=== PATIENT | female | born 2005 | race Caucasian/White ===

== ENCOUNTER 2023-07-18 16:57 | Emergency (ER) | payer OTHER, SELFPAY ==
[2023-07-18 16:58] VITALS: BMI 27.7
[2023-07-18 17:00] VITALS: BP 139/63
[2023-07-18 17:56] LABS: HCG, Urine Qualitative Screen Negative
--- NOTE | 2023-07-18 18:41 | ED.GENMED ---
History of Present Illness
General
Chief Complaint: Fainting/Passed Out
Source: patient
Exam Limitations: none
Time Seen by Provider: 07/18/23 18:39
Nursing documentation reviewed up to this point in time: agreed with
Travel History
Have you had any contact with someone who has COVID-19?: No
Do you have any symptoms of coronavirus? Fever > 100 degrees, chills, cough, shortness of breath, sore throat, loss of taste or smell, muscle aches, or headache?: No
History of Present Illness
History of Present Illness:
17-year-old female with no significant past medical history states she was in a crowded hot restaurant and had not eaten, she had not smoked pot for 2 weeks and after eating a marijuana gummy she passed out.
She states 'I know exactly what happened, I feel completely fine and I want to go home.' Her friend at bedside was with her and he states she faltered and he caught her she did not fall
Past History
Past History
ED Past Medical History: None
ED Past Surgical History: None
Social History
Tobacco: Non-smoker
Alcohol: None
Drug: Marijuana
Personal: Single
Living: with family
Employment: Employed
Review of Systems
Review of Systems
Allergies reviewed?: Yes
All Other Systems: ROS reviewed and negative except as documented in HPI and ROS
Constitutional: Denies fever, fatigue or chills
Respiratory: Denies trouble breathing
Cardiac: Reports syncope; Denies chest pain, diaphoresis or palpitations
ABD/GI: Denies abdominal pain, nausea, vomiting or diarrhea
: Denies dysuria, frequency, difficulty voiding or urgency
Musculoskeletal: Reports no symptoms
Neurological: Reports no symptoms
Phy Exam
Physical Exam
Physical Exam:
GENERAL: No acute distress. A&Ox3.
CONSTITUTIONAL: Afebrile.
EYES: PERRL, conjunctivae normal
ENMT: moist mucus membranes, Pharynx nl
RESPIRATORY: Regular respirations, nonlabored, lungs clear.
CARDIOVASCULAR: Regular rate and rhythm, no murmurs, no rubs.
GI: Soft, nontender, normal BS
MUSCULOSKELETAL: Moves with ease. Well perfused.
SKIN: Warm, dry, pink
PSYCH: Normal mood and affect. Well kept, interactive and appropriate
NEUROLOGIC: Awake, alert and oriented. No focal neurological deficits
Course
Orders/Labs/Results
Orders:
Orders
07/18/23 17:06
EKG [Electrocardiogram (*1)] Urgent
Reason for Study: Tachycardia
EKG- Treatment ONCE
07/18/23 17:17
Test Result ONCE
07/18/23 17:29
, Urine Qualitative Screen [HCG, Urine Qualitative Screen] Urgent
Date Specimen was Collected: 07/18/23
Time Specimen was Collected: 17:17
Vital Signs
Initial and Last Documented VS:
Initial Vital Signs
Temp Pulse Resp BP Pulse Ox
98.1 F 122 18 139/63 100
07/18/23 17:00 07/18/23 17:00 07/18/23 17:00 07/18/23 17:00 07/18/23 17:00
Last Documented Vital Signs
Temp Pulse Resp BP Pulse Ox
98.1 F 89 18 139/63 100
07/18/23 17:00 07/18/23 18:59 07/18/23 17:00 07/18/23 17:00 07/18/23 17:00
MDM/Problems Addressed
Differential Diagnosis Includes:
Vasovagal episode
MDM/Problems Addressed:
17-year-old female with no significant past medical history no recent illness, states she was in a crowded hot restaurant and had not eaten, she had not smoked pot for 2 weeks and after eating a marijuana gummy she passed out. Her friend at bedside
was with her and he states she faltered and he caught her she did not fall
She states 'I know exactly what happened, I feel completely fine and I want to go home.'
Physical exam is unremarkable
She is eating lunch and drinking.
Pt states her heart rate is up as she is nervous, she has had medical exams in the past where concern for HR addressed and always from 'nerves.'
History and exam is consistent with a vasovagal episode versus a side effect of the marijuana gummy
Stable for discharge.
HR 89 at discharge
*Critical Care Note
Total Time (30-74mins, 75-104mins- exclusive of procedures): Not Applicable
ED Attending Note
-
Portions of this chart may have been created with voice recognition software.� Occasional wrong word or��sound alike� substitutions may have occurred due to the inherent limitations of voice recognition software.
Discharge Plan
Departure
Patient Disposition: Home (Routine Discharge)
Date of Disposition: 07/18/23
Time of Disposition: 18:54
Patient with high blood pressure during this ER visit?: No
Condition: Good
Discharge Problem:
Episode of syncope
Instructions: Syncope (Fainting) (DC)
Referrals:
NONE,* [Family Provider] -
Activity Restrictions/Additional Instructions:
As we discussed,I see nothing worrisome in your workup here today, drink plenty of fluids as you may be dehydrated causing your rapid heart rate and passing out.
Interventions
Interventions:
*Risk Screen - Suicide Last Done: 07/18/23 17:00
*General Assessment Last Done: 07/18/23 17:00
*Neglect/Abuse Screening Last Done: 07/18/23 17:00
ED- Fall Risk Assessment Last Done: 07/18/23 17:15
*Nursing Disposition Last Done: 07/18/23 19:11
ED- Cardiac Assessment Last Done: 07/18/23 17:15
ED- Neurological Assessment Last Done: 07/18/23 17:15
Discharge Date and Time
Discharge Date/Time: 07/18/23 19:11
== END 2023-07-18 19:11 | disposition home or self-care (01) ==
LOC: EMR 16:57
PROVIDERS: EMERGENCY PHYSICIAN Emergency Medicine
DX: R55 Syncope and collapse (principal)
CPT/HCPCS: 99282; 81025; 93005